=== PATIENT | female | born 2000 | race Two or more races ===

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

== ENCOUNTER 2020-04-05 17:17 | Emergency (ER) | payer MEDICAID ==
[~2020-04-05] VITALS: Ht 167.6 cm; Wt 63.5 kg
[2020-04-05 17:26] VITALS: BP 117/78
[2020-04-05] MEDS ORDERED: KETOROLAC TROMETH 60MG/2ML VIAL IM ONE (18:00)
== END 2020-04-05 18:07 | disposition home or self-care (01) ==
LOC: ER 17:17
DX: S29.012A Strain of muscle and tendon of back wall of thorax, initial encounter (principal); S46.912A Strain of unspecified muscle, fascia and tendon at shoulder and upper arm level, left arm, initial encounter; X50.9XXA Other and unspecified overexertion or strenuous movements or postures, initial encounter; Y93.89 Activity, other specified; Y92.89 Other specified places as the place of occurrence of the external cause; Y99.8 Other external cause status
CPT/HCPCS: 73030; 99283; J1885

== ENCOUNTER 2020-04-23 16:13 | Emergency (ER) | payer MEDICAID ==
[~2020-04-23] VITALS: Ht 170.2 cm; Wt 63.5 kg
[2020-04-23 17:08] VITALS: BP 140/96
== END 2020-04-23 18:00 | disposition home or self-care (01) ==
LOC: ER 16:26
DX: S46.912A Strain of unspecified muscle, fascia and tendon at shoulder and upper arm level, left arm, initial encounter (principal); X58.XXXA Exposure to other specified factors, initial encounter; Y93.89 Activity, other specified; Y92.89 Other specified places as the place of occurrence of the external cause; Y99.8 Other external cause status
CPT/HCPCS: 73030

== ENCOUNTER 2020-10-02 14:24 | Emergency (ER) | payer MEDICAID, OTHER ==
[~2020-10-02] VITALS: Ht 154.9 cm; Wt 68.0 kg
[2020-10-02 15:42] VITALS: BP 119/76
[2020-10-02] MEDS ORDERED: IBUPROFEN 800 MG TAB PO ONE (16:00)
== END 2020-10-02 18:01 | disposition home or self-care (01) ==
LOC: ER 14:24
DX: S13.9XXA Sprain of joints and ligaments of unspecified parts of neck, initial encounter (principal); R07.89 Other chest pain; V49.9XXA Car occupant (driver) (passenger) injured in unspecified traffic accident, initial encounter; Y93.89 Activity, other specified; Y92.89 Other specified places as the place of occurrence of the external cause; Y99.8 Other external cause status
CPT/HCPCS: 70450; 71046; 72125